=== PATIENT | female | born 1975 | race Two or more races ===

== ENCOUNTER 2025-02-22 09:50 | Emergency (ER) | payer MEDICAID, SELFPAY ==
[2025-02-22 09:59] VITALS: BP 134/81; PULSE 66; RESP 18; TEMP 36.9; O2SAT 97; BMI 40.1
--- NOTE | 2025-02-22 10:11 | XR_ITS ---
Examination: Shoulder,left, 3 views Technique: Shoulder AP internal rotation, AP external rotation, Y view shoulder, 3 views Exam date and time :February 22, 2025 1018 hours INDICATIONS: Patient fell this morning with injury to the shoulder, shoulder pain. FINDINGS: No shoulder fracture or dislocation No AC joint separation IMPRESSION: No shoulder fracture or dislocation
--- NOTE | 2025-02-22 10:11 | XR_ITS ---
Examination: Humerus 2 views left Technique: Humerus, AP lateral 2 views Date and time of exam: February 22, 2025 1018 hours INDICATIONS: Patient fell this morning with injury to the arm, arm pain FINDINGS: No shoulder fracture or dislocation Shaft of the humerus intact IMPRESSION: No fracture
--- NOTE | 2025-02-22 10:13 | EDNOTE_ITS ---
ED Fall Injury RME/HPI General Chief Complaint: Fall Stated Complaint: fell on left hand, left hand pain Time Seen by Provider: 02/22/25 10:02 Source: patient Arrival date/time: 02/22/25 09:50 49-year-old female with no known medical history presents to the emergency room with a chief complaint of pain and tenderness to her left shoulder and left arm x 2 days. Patient had a ground-level fall that occurred yesterday while gardening. Mode of arrival: ambulatory Limitations: no limitations Related Data Allergies Allergy/AdvReac Type Severity Reaction Status Date / Time No Known Allergies Allergy Verified 02/22/25 09:54 Review of Systems Review of Systems Systems Reviewed: All systems reviewed, normal except as documented Constitutional Constitutional: Reports system reviewed and no additional complaints, except as documented, Denies fatigue, Denies fever(s), Denies headache(s) and Denies weakness Eyes Eyes: Reports system reviewed and no additional complaints, except as documented, Denies blurry vision and Denies change in vision ENT Ears, Nose, Mouth, and Throat: Reports system reviewed and no additional complaints, except as documented, Denies otalgia, Denies headache(s), Denies nasal congestion, Denies throat swelling and Denies vertigo Cardiovascular Cardiovascular: Reports system reviewed and no additional complaints, except as documented, Denies chest pain, Denies dyspnea and Denies dyspnea on exertion Respiratory Respiratory: Reports system reviewed and no additional complaints, except as documented, Denies chest congestion, Denies cough, Denies dyspnea, Denies dyspnea on exertion and Denies wheezing Gastrointestinal Gastrointestinal: Reports system reviewed and no additional complaints, except as documented, Denies abdominal pain, Denies cramping, Denies nausea and Denies vomiting Genitourinary Genitourinary: Reports system reviewed and no additional complaints, except as documented Musculoskeletal Musculoskeletal: Reports system reviewed and no additional complaints, except as documented, Reports arthralgias, Denies back pain, Reports joint swelling and Reports limited range of motion Integumentary/Breasts Skin/Breast: Reports system reviewed and no additional complaints, except as documented and Denies wounds Neurologic Neurologic: Reports system reviewed and no additional complaints, except as documented, Denies confusion, Denies headache(s), Denies lack of coordination, Denies vertigo and Denies weakness Psychiatric Psychiatric: Reports system reviewed and no additional complaints, except as documented, Denies anxiety, Denies confusion, Denies depression, Denies paranoia, Denies suicidal ideation and Denies tactile hallucinations Endocrine Endocrine: Reports system reviewed and no additional complaints, except as documented and Denies fatigue Hematologic/Lymphatic Hematologic/Lymphatic: Reports system reviewed and no additional complaints, except as documented and Denies lymphadenopathy Allergic/Immunologic Allergic/Immunologic: Reports system reviewed and no additional complaints, except as documented, Denies throat swelling, Denies urticaria and Denies wheezing Past Medical History Social History SMOKING STATUS: Never smoker ED Exam General Limitations: Present no limitations General appearance: Present alert and in no apparent distress Head Head exam: Present atraumatic Eye Eye exam: Present normal appearance, PERRL and EOMI ENT ENT exam: Present normal exam, normal oropharynx and mucous membranes moist Neck Neck exam: Present normal inspection, full ROM and trachea midline Chest Chest inspection: Present normal inspection and symmetric chest wall rise Respiratory Respiratory exam: Present normal lung sounds bilaterally Cardiovascular Cardiovascular exam: Present regular rate, normal rhythm and normal heart sounds Abdominal Exam Abdominal exam: Present soft and normal bowel sounds Extremities Exam Extremities exam: Present normal inspection and full ROM Expanded Upper Extremity Exam Shoulder exam: Present tenderness; Absent full ROM Arm exam: Present tenderness; Absent full ROM Elbow exam: Present normal inspection Forearm/Wrist exam: Present normal inspection Hand exam: Present normal inspection Vascular exam: Normal capillary refill Back Exam Back exam: Present normal inspection and full ROM Neurological Exam Neurological exam: Present alert, oriented X3 and CN II-XII intact Psychiatric Psychiatric exam: Present normal affect and normal mood Skin Skin exam: Present warm, dry, intact and normal color Course Quality Measures none Orders Category Date Time Status sling [Splint / Immobilizer] STAT Care 02/22/25 10:11 Active XR humerus LT MIN 2V Stat Exams 02/22/25 10:11 Completed XR shoulder LT min 2V Stat Exams 02/22/25 10:11 Completed Ketorolac Inj [Toradol Inj] Med 02/22/25 10:11 Discontinued 30 mg IM X1 ONE Vital Signs Vital signs: Vital Signs Temperature 98.4 F 02/22/25 09:59 Pulse Rate 66 02/22/25 09:59 Respiratory Rate 18 02/22/25 09:59 Blood Pressure 134/81 H 02/22/25 09:59 Pulse Oximetry (%) 97 02/22/25 09:59 Oxygen Delivery Method Room Air 02/22/25 09:59 O2 saturation 97% within normal limits Fall MDM Narrative MDM Narrative:: 49-year-old female with no known medical history presents to the emergency room with a chief complaint of pain and tenderness to her left shoulder and left arm x 2 days. Patient had a ground-level fall that occurred yesterday while gardening. Patient is hemodynamically stable and in no apparent distress Physical examination shows tenderness and pain to the patient's left shoulder. The patient has limited range of motion and has difficulty raising her arm above her head. Patient also has point tenderness to the left humerus. X-ray of the left shoulder was completed and was negative for any acute fracture or dislocation. X-ray of the left humerus was completed and was negative for any acute fracture or dislocation Patient was discharged and educated to follow-up with primary care provider in the next 24 to 48 hours and return to the emergency room for any evidence of worsening signs or symptoms Patient data External records reviewed:: [facility] previous records Clinical information provided by:: patient Social determinants that could affect healthcare access:: none Patient has the following chronic illnesses:: No chronic illness How is presenting disease/condition affected by chronic disease/condition?: no chronic disease Evaluation data The following diagnostics were reviewed and interpreted by me:: lab results and radiology exam(s) Lab and/or radiology exams considered but not ordered:: Labs and radiology exams considered and ordered Interpretation Summary: Left shoulder x-ray-no acute fracture or dislocation Left humerus x-ray-no acute fracture or dislocation Medications / Prescriptions Medications or Prescriptions considered but not ordered:: Medication given Medication administrations:: Medication Administration History Discontinued Medications Ketorolac Tromethamine (Ketorolac Inj 60 Mg/2 Ml Vial) 30 mg IM X1 ONE Stop: 02/22/25 10:12 Last Admin: 02/22/25 10:31 Dose: 30 mg Documented By: OA Medication given Consultations Consultation(s) initiated? (list below): No Diagnosis Fall Differential Diagnosis: dislocation of shoulder region and other (Left shoulder fracture/left humerus fracture/left shoulder sprain) Most likely diagnosis given after review of the tests above:: Left shoulder sprain Admission Indicated Admission indicated?: not indicated Admission Request Was there a request for admission?: No Disposition Plan Disposition Plan: Discharge Discharge Attestation Discharge Attestation: The patient and all family members were given an opportunity to ask questions and understood the discharge instructions. Discharge instructions specifically effects, indications for sooner follow up or return to the emergency department, and the expected course of current diagnosis. Patient condition: Stable Discharge Plan Plan Patient Disposition: HOME (Self Care) Disposition Comment: Stable Problem List Clinical Impression: Sprain of left shoulder Patient/Caregiver Discharge Instructions Education Materials: ED JARVIS Wrap, ED Shoulder Sprain Additional Instructions: Por favor, consulte con barkley m?dico de cabecera en las pr?ximas 24 a 48 horas. No hay fracturas ni luxaciones en el hombro ni en el h?brenda. Si los signos y s?ntomas persisten, es probable que se trate de bailee lesi?n del manguito rotador y se necesitar? bailee resonancia magn?conchita para barkley posterior tratamiento. Si observa cualquier signo de empeoramiento de los signos o s?ntomas, acuda a urgencias de inmediato. Print Language: Chinese Stand Alone Forms: Veronica Award Info., Work/School Release, Patient Portal Info Letter PA/[employer]ICE [employer]ATION CONSOLE OPERATOR Supervising Physician JARET/KARENA Supervising Physician: Dr Walsh
[2025-02-22] MEDS: KETOROLAC INJ 60 MG/2 ML VIAL 30 MG IM (10:31)
== END 2025-02-22 12:17 | disposition home or self-care (01) ==
LOC: SERX 10:55
PROVIDERS: Emergency Provider Emergency Medicine; PCP Physician Assistant
DX: S43.402A Unspecified sprain of left shoulder joint, initial encounter (principal); W18.30XA Fall on same level, unspecified, initial encounter
CPT/HCPCS: 73030; 73060; 96372; 99283; J1885

== ENCOUNTER → 2025-08-19 | Outpatient (CLI) | payer MEDICAID, SELFPAY ==
--- NOTE | 2025-08-19 16:59 | XR_ITS ---
MRI shoulder, left, without contrast. Date and time: August 19, 2025, 1732 hrs. Indications: Left shoulder pain joint clicking stiffness 6 months after fall with injury to the shoulder Technique: Multiple axial, sagittal and coronal sections of the shoulder have been obtained. Siemens high-resolution 1.5 [employer] MRI scanner is utilized. Axial fat-suppressed sections, TR 2350, TE 18 T2-weighted coronal fat-saturated images, TR 3500, TE 7100 T1-weighted coronal images, TR 500, TE 15 T2-weighted sagittal fat-saturated images, TR 3500, TE 57 T1-weighted sagittal sections, TR 504, TE 13. Findings: Supraspinatus tendon insertion is intact. Infraspinatus tendon insertion is intact. Subscapularis insertion is intact. Subscapularis bursa is not seen. Long head of the biceps is in the bicipital groove. No definite tear of the biceps superior labral anchor is seen. Retraction of the musculotendinous junction of the rotator cuff is not seen . Tendinosis pattern is prominent. Distance between the acromium and humeral head is 7.3 mm Atrophy of the supraspinatus muscle is moderate. Atrophy of the infraspinatus muscle is mild. Sagittal sections demonstrate a horizontal acromion. Acromioclavicular joint demonstrates mild osteoarthritis . Osacromiale is not identified. Labral margins intact. Bony glenoid fossa on the sagittal sections does not demonstrate osseous defect. Occult fracture or area of avascular necrosis is not seen. Acromioclavicular joint separation is not visible. Defect in the posterolateral margin of the humeral head is not seen Impression: Rotator cuff intact Negative for labral tear Prominent rotator cuff tendinosis
== END | disposition home or self-care (01) ==
PROVIDERS: PCP Physician Assistant; Referring Provider Physician Assistant; Visit Provider Physician Assistant
DX: M67.814 Other specified disorders of tendon, left shoulder (principal)
CPT/HCPCS: 73221